=== PATIENT | male | born 1975 | race Caucasian/White ===

== ENCOUNTER 2018-10-21 16:37 | Emergency (ER) | payer MEDICAID, MEDICARE ==
[~2018-10-21] VITALS: Ht 175.3 cm; Wt 65.9 kg
[~2018-10-21 16:37] MED LIST: DIL100C PO
[2018-10-21 18:22] LABS: BASOPHILS # (AUTO) 0.1 X10'3 (0-0.2); BASOPHILS % (AUTO) 0.9 % (0-1); EOSINOPHILS # (AUTO) 0.2 X10'3 (0-0.9); EOSINOPHILS % (AUTO) 1.3 % (0-6); HEMATOCRIT 43.8 % (42.0-52.0); HEMOGLOBIN 14.8 g/dl (14.0-17.9); LYMPHOCYTES # (AUTO) 2.3 X10'3 (1.1-4.8); LYMPHOCYTES % (AUTO) 19.6 % (21-51); MEAN CORPUSCULAR HEMOGLOBIN 31.5 PG (27.0-31.0); MEAN CORPUSCULAR HGB CONC 33.7 % (33.0-36.5); MEAN CORPUSCULAR VOLUME 93.5 FL (78-98); MEAN PLATELET VOLUME 7.3 FL (7.4-10.4); MONOCYTES % (AUTO) 8.5 % (2-12); NEUTROPHILS # (AUTO) 8.4 X10'3 (1.8-7.7); NEUTROPHILS % (AUTO) 69.7 % (42-75); PLATELET COUNT 426 X10'3 (140-440); RED BLOOD COUNT 4.68 X10'6 (4.70-6.10); RED CELL DISTRIBUTION WIDTH 13.4 % (11.5-14.5)
[2018-10-21 18:33] LABS: ALANINE AMINOTRANSFERASE 31 U/L (12-78); ALBUMIN 3.7 G/DL (3.4-5.0); ALKALINE PHOSPHATASE 113 IU/L (46-116); ANION GAP 10 (8-16); ASPARTATE AMINO TRANSFERASE 17 U/L (10-37); BILIRUBIN,TOTAL 0.2 MG/DL (0.1-1.0); BLOOD UREA NITROGEN 10 MG/DL (7-18); CALCIUM 8.8 MG/DL (8.5-10.1); CHLORIDE 101 MMOL/L (99-107); CREATININE 0.91 MG/DL (0.60-1.10); GLUCOSE 88 MG/DL (70-104); POTASSIUM 3.5 MMOL/L (3.5-5.1); SODIUM 138 MMOL/L (135-145); TOTAL CARBON DIOXIDE 26.6 MMOL/L (24-32); TOTAL PROTEIN 7.3 G/DL (6.4-8.2); eGFR > 90 ML/MIN
[2018-10-21 19:31] LABS: CLARITY,URINE CLEAR (Clear); COLOR,URINE YELLOW (Yellow); GLUCOSE, URINE NEGATIVE (Neg); KETONES,URINE 40 mg/dl (Neg); LEUKOCYTE ESTERASE ,URINE NEGATIVE (Neg); NITRITES, URINE NEGATIVE (Neg); OCCULT BLOOD,URINE NEGATIVE (Neg); PH,URINE 7.5 (4.8-8.0); PROTEIN,URINE NEGATIVE (Neg)
[2018-10-21 19:31] LABS: LIPASE 75 U/L (73-393)
[2018-10-21 19:34] LABS: UA COLLECTION TYPE CLN CATCH MIDSTREAM
[2018-10-21] MEDS ORDERED: ondansetron/PF 4mg/2ml inj IV ONE (19:40)
[2018-10-21] MEDS ORDERED: normal saline 1000ML IV soln IVB ONE (19:40)
[2018-10-21] MEDS ORDERED: iohexol 300mg/ml 100ml inj. ONE (19:56)
[2018-10-21 21:02] VITALS: BP 134/91
[2018-10-21] MEDS ORDERED: ONDA4TAB6 PO (21:12)
== END 2018-10-21 21:12 | disposition home or self-care (01) ==
LOC: ER 16:37
DX: R10.11 Right upper quadrant pain (principal); R11.2 Nausea with vomiting, unspecified; F12.90 Cannabis use, unspecified, uncomplicated; Z90.49 Acquired absence of other specified parts of digestive tract; Z98.890 Other specified postprocedural states; Z79.899 Other long term (current) drug therapy
CPT/HCPCS: 36415; 74160; 74176; 80053; 81003; 83690; 85025; 85610; 96361; 96374; 99284; J2405; J7030; Q9967

== ENCOUNTER 2021-05-09 01:41 | Emergency (ER) | payer OTHER, MEDICAID ==
[~2021-05-09] VITALS: Ht 175.3 cm; Wt 68.1 kg
[~2021-05-09 01:41] MED LIST changes: +ONDA4TAB6 PO
[2021-05-09 01:47] VITALS: BP 133/87
== END 2021-05-09 02:20 | disposition home or self-care (01) ==
LOC: ER 01:41
DX: F15.10 Other stimulant abuse, uncomplicated (principal); F12.10 Cannabis abuse, uncomplicated; Z86.69 Personal history of other diseases of the nervous system and sense organs; Z90.89 Acquired absence of other organs; Z98.890 Other specified postprocedural states; Z72.89 Other problems related to lifestyle; Z79.899 Other long term (current) drug therapy
CPT/HCPCS: 99283

== ENCOUNTER → 2024-04-27 | Outpatient (CLI) | payer MEDICARE, MEDICAID | END | disposition home or self-care (01) | LOC: RAD 08:58 | PROVIDERS: ATTEND Family Medicine | DX: S62.396A Other fracture of fifth metacarpal bone, right hand, initial encounter for closed fracture (principal); M79.641 Pain in right hand; X58.XXXA Exposure to other specified factors, initial encounter; Y93.89 Activity, other specified; Y92.89 Other specified places as the place of occurrence of the external cause; Y99.8 Other external cause status | CPT/HCPCS: 73130 ==